=== PATIENT | male | born 1975 | race American Indian/Alaskan Native ===

== ENCOUNTER 2018-12-06 02:16 | Emergency (ER) | payer MEDICARE ==
[2018-12-06 02:25] VITALS: BP 129/79
--- NOTE | 2018-12-06 03:00 | XRay Report ---
FINAL REPORT PROCEDURE: XR CHEST ROUTINE 2V TECHNIQUE: PA and lateral chest radiographs were obtained. CPT 25389 HISTORY: JENNIFER/ cough COMPARISON: No prior studies are available for comparison. FINDINGS: Heart: Normal. Mediastinum/Vessels: Normal. Lungs/Pleural space: Lungs are expanded. There is a faint left perihilar infiltrate. There are no eff usions or pneumothoraces.. Bony thorax: No acute osseous abnormality. Other: IMPRESSION: The heart size is normal.. Lungs are expanded. There is a faint left perihilar infiltrate. There are no effusions or pneumothora kush..
--- NOTE | 2018-12-06 08:35 | Emergency Department Report ---
ED General Adult HPI - General Chief complaint: Skin Rash Stated complaint: RASH Time Seen by Provider: 12/06/18 08:05 Source: patient Mode of arrival: Ambulatory Limitations: No Limitations - History of Present Illness Initial comments: This is a 43-year-old male with chronic inguinal rash. He also noticed some problems with redness of his left hand and dry skin. He's had these problems for at least 3 weeks. He thinks it's related to mold in his toilet bowl. The rash is pruritic. He does not report any systemic symptoms. He has no history of diabetes. -: Gradual, week(s), month(s) Location: genitals Consistency: constant Improves with: none Worsens with: none Associated Symptoms: denies other symptoms - Related Data Home Medications Medication Instructions Recorded Confirmed Last Taken Ubiquinol [Active-Q] 20 mg PO DAILY 10/29/15 10/29/15 10/28/15 Previous Rx's Medication Instructions Recorded Last Taken Type Ibuprofen [Motrin] 600 mg PO Q8H PRN #50 tablet 10/29/15 Unknown Rx Metaxalone [Skelaxin] 800 mg PO TID #30 tablet 10/29/15 Unknown Rx traMADol [Ultram] 50 mg PO Q6HR PRN #20 tablet 10/29/15 Unknown Rx Clotrimazole 1% [Lotrimin] 1 applic TP TID #3 tube 12/06/18 Unknown Rx Fluconazole [Diflucan] 150 mg PO DAILY #7 tablet 12/06/18 Unknown Rx Allergies Allergy/AdvReac Type Severity Reaction Status Date / Time No Known Allergies Allergy Verified 10/29/15 08:35 ED Review of Systems ROS: Stated complaint: RASH Other details as noted in HPI Constitutional: denies: chills, fever Eyes: denies: eye pain, eye discharge, vision change ENT: denies: ear pain, throat pain Respiratory: denies: cough, shortness of breath, wheezing Cardiovascular: denies: chest pain, palpitations Endocrine: no symptoms reported Gastrointestinal: denies: abdominal pain, nausea, diarrhea Genitourinary: denies: urgency, dysuria Musculoskeletal: denies: back pain, joint swelling, arthralgia Skin: as per HPI, rash. denies: lesions Neurological: denies: headache, weakness, paresthesias Psychiatric: denies: anxiety, depression Hematological/Lymphatic: denies: easy bleeding, easy bruising ED Past Medical Hx - Past Medical History Previous Medical History?: No - Surgical History Past Surgical History?: Yes Additional Surgical History: r) shoulder surgery - Social History Smoking Status: Current Every Day Smoker Substance Use Type: None - Medications Home Medications: Home Medications Medication Instructions Recorded Confirmed Last Taken Type Ibuprofen [Motrin] 600 mg PO Q8H PRN #50 tablet 10/29/15 Unknown Rx Metaxalone [Skelaxin] 800 mg PO TID #30 tablet 10/29/15 Unknown Rx Ubiquinol [Active-Q] 20 mg PO DAILY 10/29/15 10/29/15 10/28/15 History traMADol [Ultram] 50 mg PO Q6HR PRN #20 tablet 10/29/15 Unknown Rx Clotrimazole 1% [Lotrimin] 1 applic TP TID #3 tube 12/06/18 Unknown Rx Fluconazole [Diflucan] 150 mg PO DAILY #7 tablet 12/06/18 Unknown Rx ED Physical Exam - General Limitations: No Limitations General appearance: alert, in no apparent distress - Head Head exam: Present: atraumatic, normocephalic - Eye Eye exam: Present: normal appearance. Absent: scleral icterus - ENT ENT exam: Present: mucous membranes moist - Neck Neck exam: Present: normal inspection - Respiratory Respiratory exam: Present: normal lung sounds bilaterally. Absent: respiratory distress - Cardiovascular Cardiovascular Exam: Present: regular rate, normal rhythm. Absent: systolic murmur, diastolic murmur, rubs, gallop - GI/Abdominal GI/Abdominal exam: Present: soft, normal bowel sounds. Absent: distended, tenderness, guarding, rebound, rigid - Rectal Rectal exam: Present: deferred - Extremities Exam Extremities exam: Present: normal inspection - Back Exam Back exam: Present: normal inspection - Neurological Exam Neurological exam: Present: alert, oriented X3, CN II-XII intact. Absent: motor sensory deficit - Psychiatric Psychiatric exam: Present: normal affect, normal mood - Skin Skin exam: Present: warm, dry, intact, erythema (there is a tinea cruris extensive rash involving the intertriginous folds of the groin and erythema involving the scrotum. There appears to be no lymphangitis, purulence, abscess or signs of bacterial infection.). Absent: rash ED Course Vital Signs 12/06/18 02:23 Temperature 97.9 F Pulse Rate 91 H Respiratory 18 Rate Blood Pressure 129/79 O2 Sat by Pulse 100 Oximetry ED Medical Decision Making - Medical Decision Making Accu-Chek 90. - Differential Diagnosis monilial versus tinea cruris rash Critical care attestation.: If time is entered above; I have spent that time in minutes in the direct care of this critically ill patient, excluding procedure time. ED Disposition Clinical Impression: Tinea cruris Disposition: DC-01 TO HOME OR SELFCARE Is pt being admited?: No Does the pt Need Aspirin: No Condition: Stable Instructions: Clementineck Itch (ED) Additional Instructions: I'll up with primary care physician. Rx as directed. It will take some time to clear this rash. Referral to a air dispatcher through her primary care physician may be required. Prescriptions: Clotrimazole 1% [Lotrimin] 1 applic TP TID #3 tube Fluconazole [Diflucan] 150 mg PO DAILY #7 tablet Referrals: PRIMARY CAREMD [Primary Care Provider] - 3-5 Days Time of Disposition: 08:35
== END 2018-12-06 08:49 | disposition home or self-care (01) ==
LOC: ED 02:16
DX: B35.6 Tinea cruris (principal); F17.200 Nicotine dependence, unspecified, uncomplicated
CPT/HCPCS: 71046; 82962

== ENCOUNTER 2020-01-28 15:32 | Emergency (ER) | payer OTHER, MEDICARE ==
[2020-01-28 15:48] VITALS: BP 125/81
[2020-01-28] MEDS ORDERED: IBUPROFEN 800 MG TAB PO ONE (16:19)
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
--- NOTE | 2020-01-28 16:54 | XRay Report ---
XR spine lumbosacral 2-3V INDICATION / CLINICAL INFORMATION: Low back pain. COMPARISON: None available. FINDINGS: BONES/JOINT(S): No acute fracture or subluxation. There is mild diffuse spondylosis with small anteri or and lateral osteophytes. There are no aggressive appearing bone lesions. SOFT TISSUES: No significant abnormality. ADDITIONAL FINDINGS: None. Signer Name: Jeff Interiano MD Signed: 01/28/2020 4:49 PM Workstation Name: [id number]
== END 2020-01-28 17:35 | disposition home or self-care (01) ==
LOC: ED 15:32
DX: M25.572 Pain in left ankle and joints of left foot (principal); M54.9 Dorsalgia, unspecified; F17.200 Nicotine dependence, unspecified, uncomplicated; V49.59XA Passenger injured in collision with other motor vehicles in traffic accident, initial encounter; Y93.89 Activity, other specified; Y92.488 Other paved roadways as the place of occurrence of the external cause; Y99.8 Other external cause status
CPT/HCPCS: 72100; 99283

== ENCOUNTER 2021-09-30 13:39 | Emergency (ER) | payer SELFPAY ==
[2021-09-30 13:52] VITALS: BP 126/82
[2021-09-30] MEDS ORDERED: IBUPROFEN 600 MG TAB PO ONE (14:14)
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
== END 2021-09-30 15:36 | disposition home or self-care (01) ==
LOC: ED 13:39
DX: M25.462 Effusion, left knee (principal); F17.200 Nicotine dependence, unspecified, uncomplicated; F32.9 Major depressive disorder, single episode, unspecified; Z79.899 Other long term (current) drug therapy
CPT/HCPCS: 99283